=== PATIENT | male | born 1980 | race Caucasian/White ===

== ENCOUNTER 2024-12-23 01:55 | Day surgery (SDC) | payer BC, SELFPAY ==
[2024-12-10 09:44] VITALS: BMI 36.6
[2024-12-23 06:32] VITALS: BP 135/93; PULSE 91; RESP 16; TEMP 36.4; O2SAT 98
[2024-12-23] MEDS: LACTATED RINGERS 1,000 ML 150 ML IV CONT (06:41)
--- NOTE | 2024-12-23 06:48 | WPDANESEPPF ---
Anes - Initial Pre Proc Eval Procedure: Operation Date: 12/23/24 07:30 Proposed Procedures p Colonoscopy - Ervin Odonnell MD Date/Time: 12/23/24 06:48 Surgeon: Ervin Odonnell MD Pre Op Diagnosis: Family Hx Colon Cancer Patient Data Age: 44 Gender: M Height: 1.78 m Weight: 116 kg Last Vital Signs Temp 97.6 F 12/23/24 06:32 Pulse 91 12/23/24 06:32 Resp 16 12/23/24 06:32 BP 135/93 H 12/23/24 06:32 Pulse Ox 98 12/23/24 06:32 O2 Del Method Room Air 12/23/24 06:32 Allergies Allergy/AdvReac Type Severity Reaction Status Date / Time No Known Allergies Allergy Verified 12/23/24 06:31 Home Medications ?Medication ?Instructions ?Recorded ?Confirmed ?Type No Home Medications 12/23/24 12/23/24 History Patient hx anesthesia problems: none Family hx anesthesia problems: none Results Review: All pre-operative results and documents have been reviewed as part of the pre-operative evaluation. [facility] Social History Social History Smoking status: Never smoker Drinks per week: 4 Living arrangements: alone Spiritual care concerns: No Anes - Eval Final PreProcedure Day of Procedure 12/23/24 06:48 Patient weight: obese Lungs: normal air movement Airway: Mallampati scale class II Neurological: alert and oriented Last oral intake: >/= 8 hours ASA classification: II Emergent: no Anesthetic plan: proceed Anesthesia type and monitoring: general GIVS and standard monitoring Results Review: All pre-operative results and documents have been reviewed as part of the pre-operative evaluation. Famiy hx of colon ca, pt prev vaped, none for 1 year. Informed Consent: The patient's anesthetic plan and its attendant risks and benefits were discussed with the patient/family/POA. Questions were solicited and answers provided to the satisfaction of the patient/family/POA.
--- NOTE | 2024-12-23 07:23 | PM.HPGS ---
History of Present Illness History of Present Illness Consent: Risks, benefits, and alternatives have been discussed and questions answered. Patient agrees to proceed with procedure. Chief complaint: Family Hx Colon Cancer Narrative: Phil Anderson is a 44 year old male here for first colonoscopy, brother had colon cancer Review of Systems Review of Systems: All systems reviewed & are unremarkable except as noted in HPI and below PMFSH Past Medical History Medical History (Updated 12/23/24 @ 07:25 by Ervin Odonnell MD) Family history of colon cancer Social History Social History Smoking status: Never smoker Drinks per week: 4 Living arrangements: alone Spiritual care concerns: No Meds Home Medications and Allergies Home Medications ?Medication ?Instructions ?Recorded ?Confirmed ?Type No Home Medications 12/23/24 12/23/24 History Allergies Allergy/AdvReac Type Severity Reaction Status Date / Time No Known Allergies Allergy Verified 12/23/24 06:31 Vital Signs Vital Signs - 24 hr 12/23/24 06:32 Temperature 97.6 F Pulse Rate 91 Respiratory Rate 16 Blood Pressure 135/93 H Pulse Oximetry 98 Oxygen Delivery Room Air Exam Const: General: comfortable and no acute distress HENMT: Face/Nose/Sinus: Normal nares present Eyes: General: appearance normal, both eyes and all related structures Neck: Neck: no JVD Resp: Auscultation: clear to auscultation bilaterally Cardio: Rate: regular rate Rhythm: regular rhythm GI: Inspection: non-distended GI Palp: Yes Soft to palpation Skin: General skin exam: normal color Neuro: General: gait normal Speech: normal speech Extrem: General: normal to inspection Psych: Mental Status: mental status grossly normal Assessment and Plan Assessment and plan (1) Family history of colon cancer: Code(s): Z80.0 - Family history of malignant neoplasm of digestive organs Status: Acute Assessment and Plan: colonoscopy
[2024-12-23 07:44] VITALS: BP 124/76; PULSE 83; RESP 20; O2SAT 99
[2024-12-23 07:54] VITALS: BP 126/87; PULSE 74; RESP 20; O2SAT 99
[2024-12-23 08:04] VITALS: BP 125/86; PULSE 75; RESP 20; O2SAT 99
== END 2024-12-23 08:09 | disposition home or self-care (01) ==
PROVIDERS: PCP Family Medicine; Visit Provider Internal Medicine Gastroenterology
PROC: 0DJD8ZZ Inspection of Lower Intestinal Tract, Via Natural or Artificial Opening Endoscopic (ICD-10-PCS; CPT 45378; principal; 2024-12-23 07:30)
DX: Z12.11 Encounter for screening for malignant neoplasm of colon (principal); K64.8 Other hemorrhoids; Z80.0 Family history of malignant neoplasm of digestive organs; E66.9 Obesity, unspecified; Z68.36 Body mass index [BMI] 36.0-36.9, adult
CPT/HCPCS: 45378; J2704; J7120